=== PATIENT | female | born 1995 | race Caucasian/White ===

== ENCOUNTER 2018-12-09 22:49 | Emergency (ER) | payer BC ==
[~2018-12-09] VITALS: Ht 170.2 cm; Wt 65.8 kg
[2018-12-09 22:56] VITALS: BP 112/74
--- NOTE | 2018-12-09 22:56 | NUR ---
ED Nurse Note: Pt arrived ED from home, c/o sore throat for 2 days. Pt is A/O X4. Vital signs stable at this time, waiting for orders.
--- NOTE | 2018-12-09 23:05 | Emergency Room Report ---
History of Present Illness General Chief Complaint: Sore Throat Source: Patient Present Illness HPI Patient present with complaints of 2 days of ongoing sore throat The discomfort have persisted today Patient complains of pain with swallowing denies any chest pain or short of breath denies any cough denies any headache she had subjective low-grade fever at home Denies any recent travel Denies any previous problems with her throat Allergies: Uncoded Allergies: PENICILLIN (Allergy, Unknown, 12/09/18) Patient History Past Medical History: see triage record Pertinent Family History: none Last Menstrual Period: 11/26/18 Now: No - IUD Reviewed Nursing Documentation: PMH: Agreed; PSxH: Agreed Nursing Documentation-PMH Past Medical History: No History, Except For Review of Systems All Other Systems: negative except mentioned in HPI Physical Exam Vital Signs Date Time Temp Pulse Resp B/P (MAP) Pulse Ox O2 Delivery O2 Flow Rate FiO2 12/09/18 22:52 98.6 95 16 111/76 96 Room Air Sp02 EP Interpretation: reviewed, normal General Appearance: well appearing, no apparent distress Head: normocephalic, atraumatic Eyes: bilateral eye PERRL, bilateral eye EOMI ENT: normal voice, pharyngeal erythema Neck: supple, thyroid normal Respiratory: lungs clear, no retraction, no accessory muscle use Cardiovascular #1: regular rate, rhythm Gastrointestinal: soft, no mass Musculoskeletal: normal inspection Neurologic: alert Skin: no rash Lymphatic: no adenopathy Medical Decision Making Diagnostic Impression: Primary Impression: Pharyngitis ER Course Given the exam and findings Patient will require oral antibiotics My consideration for peritonsillar abscess/retropharyngeal abscess is low And patient will have close outpatient follow-up Last Vital Signs Date Time Temp Pulse Resp B/P (MAP) Pulse Ox O2 Delivery O2 Flow Rate FiO2 12/09/18 22:52 98.6 95 16 111/76 96 Room Air Status: improved Disposition: HOME, SELF-CARE Condition: Stable Scripts Clindamycin Hcl (CLINDAMYCIN HCL) 300 Mg Capsule 300 MG ORAL THREE TIMES A DAY, #21 CAP Prov: Amol Tovar DO 12/09/18 Ibuprofen* (MOTRIN*) 600 Mg Tablet 600 MG ORAL Q8H PRN for For Pain, #20 TAB 0 Refills Prov: Amol Tovar DO 12/09/18 Additional Instructions: Patient is provided with the discharge instructions notified to follow up with primary doctor in the next 2-3 days otherwise return to the er with any worsening symptoms. Please note that this report is being documented using DRAGON technology. This can lead to erroneous entry secondary to incorrect interpretation by the dictating instrument. Amol Tovar DO Dec 09, 2018 23:05
[2018-12-09] MEDS ORDERED: IBUPROFEN600 MG ORAL (23:06)
[2018-12-09] MEDS ORDERED: CLINDAMYCIN HC300 MG ORAL (23:06)
[2018-12-09 23:22] VITALS: BP 112/74
--- NOTE | 2018-12-09 23:22 | NUR ---
ER DISCHARGE NOTE: Patient is cleared to be discharged per Dr. Tovar. Pt is A/O x 4 on room air with stable vital signs. Pt was given D/C and prescription instructions and was able to verbalize understanding. Pt's ID band removed. Pt is able to ambulate with steady gait and took all belongings.
== END 2018-12-09 23:30 | disposition home or self-care (01) ==
LOC: EMR 23:27
DX: J02.9 Acute pharyngitis, unspecified (principal); Z88.0 Allergy status to penicillin; Z97.5 Presence of (intrauterine) contraceptive device
CPT/HCPCS: 99282